=== PATIENT | female | born 1980 | race African-American/Black ===

== ENCOUNTER 2016-06-26 22:56 | Emergency (ER) | payer MEDICAID, OTHER ==
[~2016-06-26] VITALS: Ht 170.2 cm; Wt 108.4 kg
[~2016-06-26 22:56] MED LIST: AMLO10TA2 PO; DARU800T2 OR; EMTRTAB7 PO; NEBI20TA2 PO; RITO100T PO; TRAZ50TA2 PO; [UNRECOGNIZED DRUG - CODE] PO
[2016-06-27 02:53] LABS: Basophils # (auto) 0 uL; Basophils % (auto) 0.3 % (0.0-2.0); DEFINITIVE VIEW TRANSMISSION; Eosinophils # (auto) 0 uL; Eosinophils % (auto) 1.2 % (0.0-7.0); Hematocrit 37.8 % (36.0-46.0); Lymphocytes # (auto) 1.4 uL; Lymphocytes % (auto) 38.5 % (10.0-50.0); Mean Corpuscular Hemoglobin 25.9 pg (28.0-32.0); Mean Corpuscular Hgb Conc. 31.7 g/dL (32.0-36.0); Mean Corpuscular Volume 81.8 fL (80.0-100.0); Mean Platelet Volume 7.5 fL (7.4-10.4); Monocytes # (auto) 0.2 uL; Neutrophils # (auto) 2.1 uL; Platelet Count (auto) 334 10^3/uL (140-450); White Blood Cell 3.7 10^3/uL (4.4-10.8)
[2016-06-27 03:11] LABS: INR 1.04 (0.9-1.15); Partial Thromboplastin Time 24.8 sec (22.64-33.71); Prothrombin Time 10.7 sec (9.37-12.3)
[2016-06-27 03:42] LABS: Albumin 3.2 g/dL (3.4-5.0); BUN/Creatinine Ratio 17.6; Calcium 7.8 mg/dL (8.5-10.1)
[2016-06-27 03:46] LABS: Bilirubin, Total 0.2 mg/dL (0.2-1.0); Total Protein 9.2 g/dL (6.4-8.2)
[2016-06-27] MEDS ORDERED: LIDOCAINE VISCOUS 2% 15ML UD PO ONE (04:00)
[2016-06-27] MEDS ORDERED: ONDANSETRON ODT 4 MG TAB PO ONE (04:00)
[2016-06-27] MEDS ORDERED: DONNATAL 5ml ORAL Elix (BELLADONNA ALK-PHENOBARB) PO ONE (04:00)
[2016-06-27] MEDS ORDERED: ALUM & MAG HYDROX-SIMETH LIQ(MAALOX) 30 ML PO ONE (04:00)
[2016-06-27 04:17] LABS: Urine Bilirubin Negative (Negative); Urine Color Yellow (Yellow); Urine Glucose Normal (Normal); Urine Ketone Negative (Negative); Urine Mucus FEW (None Seen); Urine Nitrite Negative (Negative); Urine RBC 37 /hpf (0 - 4); Urine Squamous Epithelial Cell FEW /hpf (<5); Urine Urobilinogen Normal (Negative)
[2016-06-27 04:22] LABS: Potassium 2.9 mmol/L (3.5-5.1)
[2016-06-27] MEDS ORDERED: POTASSIUM CHL 20 Meq TABLET PO ONE (04:30)
[2016-06-27 04:31] LABS: Urine Blood 3+ /uL (Negative)
[2016-06-27] MEDS ORDERED: cefTRIAXone W LIDOCAINE 500 MG IM IM ONE (04:45)
[2016-06-27] MEDS ORDERED: cefTRIAXone SOD 500 MG VL ONE (05:06)
[2016-06-27] MEDS ORDERED: LIDOCAINE 1% HCL (LOCAL ANESTH.) INJ 20ML MDV ONE (05:06)
[2016-06-27 05:19] VITALS: BP 115/78
== END 2016-06-27 06:14 | disposition home or self-care (01) ==
LOC: ER 23:05
DX: K52.9 Noninfective gastroenteritis and colitis, unspecified (principal); N39.0 Urinary tract infection, site not specified; E11.9 Type 2 diabetes mellitus without complications; I10 Essential (primary) hypertension; J45.909 Unspecified asthma, uncomplicated; Z79.899 Other long term (current) drug therapy; F17.210 Nicotine dependence, cigarettes, uncomplicated; F12.10 Cannabis abuse, uncomplicated; F14.10 Cocaine abuse, uncomplicated
CPT/HCPCS: 36415; 80053; 81001; 83690; 84702; 85025; 85610; 85730; 96372; 99284; J0696; J2001; Q0162

== ENCOUNTER 2017-06-12 11:59 | Emergency (ER) | payer MEDICAID ==
[~2017-06-12] VITALS: Ht 167.6 cm; Wt 99.8 kg
[2017-06-12 15:03] VITALS: BP 144/93
[2017-06-12] MEDS ORDERED: SODIUM CHLORIDE 0.9% 2,000 ML IV ONE (17:06)
[2017-06-12] MEDS ORDERED: ONDANSETRON HCL 4 MG/2 ML VIAL IV ONE (17:15)
[2017-06-12] MEDS ORDERED: cefTRIAXone 1GM/10ml IVPUSH 10 ML IV ONE (17:15)
[2017-06-12] MEDS ORDERED: HYDROmorphone HCL 2 MG/ML VL IM ONE (17:15)
[2017-06-12] MEDS ORDERED: FLUCONAZOLE 200MG/100ML 100 ML IV ONE (18:00)
[2017-06-12] MEDS ORDERED: CLOTRIMAZOLE 1 % CREAM 15GM TOP ONE (18:00)
[2017-06-12 18:30] LABS: Basophils # (auto) 0 uL; Basophils % (auto) 0.3 % (0.0-2.0); Eosinophils # (auto) 0 uL; Eosinophils % (auto) 0.8 % (0.0-7.0); Hematocrit 38.4 % (36.0-46.0); Hemoglobin 12.6 g/dL (12.2-16.2); Lymphocytes # (auto) 0.6 uL; Lymphocytes % (auto) 13.9 % (10.0-50.0); Mean Corpuscular Hemoglobin 28.7 pg (28.0-32.0); Mean Corpuscular Hgb Conc. 32.7 g/dL (32.0-36.0); Mean Corpuscular Volume 87.6 fL (80.0-100.0); Monocytes # (auto) 0.2 uL; Monocytes % (auto) 4.2 % (0.0-12.0); Neutrophils # (auto) 3.6 uL; Neutrophils % (auto) 80.8 % (37.0-80.0); Platelet Count (auto) 264 10^3/uL (140-450); Red Blood Cells 4.38 10^6/uL (4.0-5.20); White Blood Cell 4.5 10^3/uL (4.4-10.8)
[2017-06-12 18:41] LABS: INR 0.9 (0.9-1.15); Partial Thromboplastin Time 26.8 sec (22.64-33.71); Prothrombin Time 9.8 sec (9.37-12.3)
[2017-06-12 18:48] LABS: Albumin 2.8 g/dL (3.4-5.0); BUN/Creatinine Ratio 19.7; Calcium 8.1 mg/dL (8.5-10.1); Potassium 3.4 mmol/L (3.5-5.1)
[2017-06-12 18:50] LABS: Bilirubin, Total 0.1 mg/dL (0.2-1.0); Total Protein 7.1 g/dL (6.4-8.2)
== END 2017-06-12 19:07 | disposition home or self-care (01) ==
LOC: ER 11:59
DX: B37.3 Candidiasis of vulva and vagina (principal); B37.0 Candidal stomatitis; B96.89 Other specified bacterial agents as the cause of diseases classified elsewhere; J45.909 Unspecified asthma, uncomplicated; I10 Essential (primary) hypertension; E11.9 Type 2 diabetes mellitus without complications; Z86.61 Personal history of infections of the central nervous system; F17.210 Nicotine dependence, cigarettes, uncomplicated
CPT/HCPCS: 36415; 71046; 80053; 85025; 85610; 85730; 96365; 96372; 96375; 99285; J1170; J1450; J2405; J7030

== ENCOUNTER 2017-07-29 04:29 | Emergency (ER) | payer MEDICAID ==
[~2017-07-29] VITALS: Ht 170.2 cm; Wt 99.8 kg
[2017-07-29 04:47] VITALS: BP 151/100
[2017-07-29] MEDS ORDERED: cefTRIAXone SOD 1,000 MG VL IM ONE (07:00)
[2017-07-29] MEDS ORDERED: ONDANSETRON HCL 4 MG/2 ML VIAL IM ONE (07:00)
[2017-07-29] MEDS ORDERED: MORPHINE SULFATE 10 MG/ML INJ 1ML SDV IM ONE (07:00)
[2017-07-29] MEDS ORDERED: MORPHINE SULFATE 4 MG/ML SYR/VIAL IM ONE (07:15)
[2017-07-29 08:19] LABS: Basophils # (auto) 0.2 uL; Basophils % (auto) 2.5 % (0.0-2.0); Eosinophils # (auto) 0 uL; Eosinophils % (auto) 0.2 % (0.0-7.0); Hemoglobin 14.1 g/dL (12.2-16.2); Lymphocytes # (auto) 0.7 uL; Lymphocytes % (auto) 10.4 % (10.0-50.0); Mean Corpuscular Hgb Conc. 33.5 g/dL (32.0-36.0); Mean Corpuscular Volume 86.4 fL (80.0-100.0); Monocytes # (auto) 0.2 uL; Monocytes % (auto) 3.1 % (0.0-12.0); Neutrophils # (auto) 5.4 uL; Neutrophils % (auto) 83.8 % (37.0-80.0); Nucleated Red Blood Cells % 0.1 %; Platelet Count (auto) 310 10^3/uL (140-450); Red Blood Cells 4.85 10^6/uL (4.0-5.20); Red Cell Distribution Width 14.6 % (11.8-14.3); White Blood Cell 6.5 10^3/uL (4.4-10.8)
[2017-07-29 08:43] LABS: Albumin 3.7 g/dL (3.4-5.0); BUN/Creatinine Ratio 9.6; Calcium 8.6 mg/dL (8.5-10.1)
[2017-07-29 08:44] LABS: Bilirubin, Total 0.4 mg/dL (0.2-1.0); Total Protein 8.8 g/dL (6.4-8.2)
== END 2017-07-29 08:30 | disposition home or self-care (01) ==
LOC: ER 04:31
DX: L02.512 Cutaneous abscess of left hand (principal); J45.909 Unspecified asthma, uncomplicated; I10 Essential (primary) hypertension; B20 Human immunodeficiency virus [HIV] disease; E11.9 Type 2 diabetes mellitus without complications; F17.210 Nicotine dependence, cigarettes, uncomplicated; Z48.817 Encounter for surgical aftercare following surgery on the skin and subcutaneous tissue
CPT/HCPCS: 36415; 73130; 73200; 80053; 81025; 83605; 85025; 86360; 96372; 99285; J0696; J2270; J2405

== ENCOUNTER 2017-10-08 19:49 | Emergency (ER) | payer MEDICAID ==
[~2017-10-08] VITALS: Ht 170.2 cm; Wt 87.3 kg
[2017-10-08 20:10] VITALS: BP 152/92
== END 2017-10-08 21:30 | disposition home or self-care (01) ==
LOC: ER 19:49
DX: B37.9 Candidiasis, unspecified (principal); B20 Human immunodeficiency virus [HIV] disease; J45.909 Unspecified asthma, uncomplicated; E11.9 Type 2 diabetes mellitus without complications; I10 Essential (primary) hypertension; F17.210 Nicotine dependence, cigarettes, uncomplicated; F12.10 Cannabis abuse, uncomplicated; F14.10 Cocaine abuse, uncomplicated

== ENCOUNTER 2018-01-11 00:38 | Inpatient (IN) | payer MEDICAID ==
[~2018-01-11] VITALS: Ht 170.2 cm; Wt 90.3 kg
[2018-01-11 03:22] LABS: Basophils # (auto) 0 uL; Basophils % (auto) 0.3 % (0.0-2.0); Eosinophils # (auto) 0 uL; Eosinophils % (auto) 0.7 % (0.0-7.0); Hematocrit 32.9 % (36.0-46.0); Hemoglobin 10.8 g/dL (12.2-16.2); Lymphocytes # (auto) 0.6 uL; Lymphocytes % (auto) 15.3 % (10.0-50.0); Mean Corpuscular Hemoglobin 27.5 pg (28.0-32.0); Mean Corpuscular Hgb Conc. 32.9 g/dL (32.0-36.0); Mean Corpuscular Volume 83.7 fL (80.0-100.0); Monocytes # (auto) 0.2 uL; Monocytes % (auto) 5.7 % (0.0-12.0); Neutrophils # (auto) 2.8 uL; Platelet Count (auto) 287 10^3/uL (140-450); Red Blood Cells 3.93 10^6/uL (4.0-5.20); Red Cell Distribution Width 16.4 % (11.8-14.3); White Blood Cell 3.6 10^3/uL (4.4-10.8)
[2018-01-11 03:35] LABS: Albumin 2.9 g/dL (3.4-5.0); BUN/Creatinine Ratio 13.8; Calcium 8.2 mg/dL (8.5-10.1); Potassium 3.2 mmol/L (3.5-5.1)
[2018-01-11 03:38] LABS: Bilirubin, Total 0.2 mg/dL (0.2-1.0); Total Protein 8.3 g/dL (6.4-8.2)
[2018-01-11] MEDS: VANCOMYCIN 1GM/250ML 250 ML IV ONE ×2 (04:00→05:30)
[2018-01-11] MEDS ORDERED: PIPERACILLIN-TAZOB 3.375GM 100 ML IV ONE (04:00)
[2018-01-11] MEDS ORDERED: HYDROcodone-ACET 5/325MG TAB PO PRN (05:15)
[2018-01-11] MEDS ORDERED: TEMAZEPAM 15 MG CAP PO PRN (05:15)
[2018-01-11] MEDS ORDERED: ONDANSETRON HCL 4 MG/2 ML VIAL IV PRN (05:15)
[2018-01-11] MEDS ORDERED: ACETAMINOPHEN 325 MG TAB PO PRN (05:15)
[2018-01-11] MEDS: CLINDAMYCIN 600MG IV 50 ML IV SCH ×2 (06:00→14:28)
[2018-01-11] MEDS ORDERED: POTASSIUM CHL 20 Meq TABLET PO ONE (06:30)
[2018-01-11] MEDS ORDERED: cefTRIAXone 1GM/10ml IVPUSH 10 ML IV SCH (09:00)
[2018-01-11] MEDS ORDERED: IOHEXOL 300 MG/ML 100ML BOTTLE IJ ONE (09:24)
[2018-01-11] MEDS ORDERED: amLODIPine BESYLATE 5 MG TAB PO SCH (10:00)
[2018-01-11] MEDS ORDERED: BYSTOLIC 20 MG PO SCH (10:00)
[2018-01-11] MEDS ORDERED: NORVIR 100 MG PO SCH (10:00)
[2018-01-11] MEDS ORDERED: FAMOTIDINE 20 MG TAB PO SCH (10:00)
[2018-01-11 15:06] LABS: Urine Bacteria FEW /hpf (None Seen); Urine Blood Negative /uL (Negative); Urine Budding Yeast OCCASIONAL /hpf (None Seen); Urine Specific Gravity 1.028 (1.001-1.035); Urine WBC 3 /hpf (0 - 5)
[2018-01-11] MEDS ORDERED: TETANUS-DIPTH-ACEL PERTUSSIS 0.5ML SYRG IM ONE (15:15)
[2018-01-11 16:17] VITALS: BP 115/83
[2018-01-11 18:58] LABS: Alcohol, Urine < 3.0 mg/dL (0-5); Amphetamine Screen, Urine NEGATIVE (NEGATIVE); Barbiturate Scree,Urine NEGATIVE (NEGATIVE); Benzodiazephine Screen, Urine NEGATIVE (NEGATIVE); Cannabinoid Screen, Urine NEGATIVE (NEGATIVE); Cocaine Screen, Urine POSITIVE (NEGATIVE); Opiate Scree,Urine NEGATIVE (NEGATIVE); Phencyclidine Screen, Urine NEGATIVE (NEGATIVE)
== END 2018-01-11 16:30 | disposition short-term general hospital (02) | DRG 894 ==
LOC: ER 00:38 → OVERFLOW 00:39
PROVIDERS: ADMIT Nurse Practitioner; ATTEND Nurse Practitioner
DX: L02.413 Cutaneous abscess of right upper limb (principal); B20 Human immunodeficiency virus [HIV] disease; M00.821 Arthritis due to other bacteria, right elbow; I10 Essential (primary) hypertension; E11.9 Type 2 diabetes mellitus without complications; F17.210 Nicotine dependence, cigarettes, uncomplicated; F14.90 Cocaine use, unspecified, uncomplicated; F12.90 Cannabis use, unspecified, uncomplicated; Z72.89 Other problems related to lifestyle; J45.909 Unspecified asthma, uncomplicated; Z98.51 Tubal ligation status; Z86.14 Personal history of Methicillin resistant Staphylococcus aureus infection
CPT/HCPCS: 36415; 71045; 73201; 80053; 80307; 81001; 84702; 85025; 87040; 87077; 87186; 87205; 90471; 90715; 94761; 96365; 96366; 96368; 96375; J0696; J2543; J3490

== ENCOUNTER 2018-07-10 09:39 | Emergency (ER) | payer MEDICAID ==
[~2018-07-10] VITALS: Ht 167.6 cm; Wt 65.3 kg
[~2018-07-10 09:39] MED LIST changes: +AMLO10TA12 PO; -AMLO10TA2 PO
[2018-07-10 10:37] LABS: Basophils # (auto) 0 uL; Basophils % (auto) 0.5 % (0.0-2.0); Eosinophils # (auto) 0 uL; Eosinophils % (auto) 0.1 % (0.0-7.0); Hematocrit 36.7 % (36.0-46.0); Hemoglobin 12.2 g/dL (12.2-16.2); Lymphocytes # (auto) 0.3 uL; Lymphocytes % (auto) 5.5 % (10.0-50.0); Mean Corpuscular Hemoglobin 28.5 pg (28.0-32.0); Mean Corpuscular Hgb Conc. 33.2 g/dL (32.0-36.0); Mean Corpuscular Volume 85.9 fL (80.0-100.0); Monocytes # (auto) 0.2 uL; Monocytes % (auto) 3.4 % (0.0-12.0); Neutrophils # (auto) 5.5 uL; Neutrophils % (auto) 90.5 % (37.0-80.0); Platelet Count (auto) 390 10^3/uL (140-450); Red Blood Cells 4.27 10^6/uL (4.0-5.20); Red Cell Distribution Width 17.4 % (11.8-14.3); White Blood Cell 6.1 10^3/uL (4.4-10.8)
[2018-07-10] MEDS ORDERED: ACETAMINOPHEN 325 MG TAB PO ONE (10:45)
[2018-07-10 10:52] LABS: Albumin 2.6 g/dL (3.4-5.0); BUN/Creatinine Ratio 11.8; Calcium 8.3 mg/dL (8.5-10.1); Potassium 3.2 mmol/L (3.5-5.1)
[2018-07-10 10:55] LABS: Bilirubin, Total 0.3 mg/dL (0.2-1.0); Total Protein 8.4 g/dL (6.4-8.2)
[2018-07-10 14:50] LABS: Urine Pregnacy Test Negative (Negative)
[2018-07-10] MEDS ORDERED: PIPERACILLIN-TAZOB 3.375GM 100 ML IV ONE (15:00)
[2018-07-10 15:20] LABS: Amphetamine Screen, Urine NEGATIVE (NEGATIVE); Barbiturate Scree,Urine NEGATIVE (NEGATIVE); Benzodiazephine Screen, Urine NEGATIVE (NEGATIVE); Cannabinoid Screen, Urine POSITIVE (NEGATIVE); Cocaine Screen, Urine POSITIVE (NEGATIVE); Opiate Scree,Urine NEGATIVE (NEGATIVE); Phencyclidine Screen, Urine NEGATIVE (NEGATIVE)
[2018-07-10] MEDS ORDERED: IBUPROFEN 600 MG TAB PO ONE ×2 (15:22→15:30)
[2018-07-10] MEDS ORDERED: SODIUM CHLORIDE 0.9% 1,000 ML IV ONE (15:30)
[2018-07-10 15:50] LABS: Urine Bacteria NONE SEEN /hpf (None Seen); Urine Blood Negative /uL (Negative); Urine Hyaline Cast FEW /lpf (0 - 2); Urine Mucus FEW (None Seen); Urine Specific Gravity 1.028 (1.001-1.035); Urine WBC 16 /hpf (0 - 5)
[2018-07-11 01:47] VITALS: BP 123/84
== END 2018-07-11 02:18 | disposition short-term general hospital (02) ==
LOC: ER 09:39
DX: L03.012 Cellulitis of left finger (principal); L89.90 Pressure ulcer of unspecified site, unspecified stage; J45.909 Unspecified asthma, uncomplicated; I10 Essential (primary) hypertension; F17.210 Nicotine dependence, cigarettes, uncomplicated; F12.90 Cannabis use, unspecified, uncomplicated; Z98.51 Tubal ligation status; Z79.899 Other long term (current) drug therapy
CPT/HCPCS: 36415; 71046; 73200; 74176; 80053; 80307; 81001; 81025; 85025; 87040; 96365; 96366; 99285; J2543; J7030

== ENCOUNTER 2019-02-17 18:10 | Inpatient (IN) | payer MEDICAID ==
[~2019-02-17] VITALS: Ht 167.6 cm; Wt 64.7 kg
[~2019-02-17 18:10] MED LIST changes: -AMLO10TA12 PO; +AMLO10TA13 PO; -DARU800T2 OR; +DARU800T3 OR
[2019-02-17 19:11] LABS: Basophils # (auto) 0 uL; Eosinophils # (auto) 0 uL; Monocytes # (auto) 0.1 uL; White Blood Cell 2.2 10^3/uL (4.4-10.8)
[2019-02-17 19:14] LABS: Hematocrit 33.4 % (36.0-46.0); Hemoglobin 11.3 g/dL (12.2-16.2); Lymphocytes # (auto) 0.2 uL; Lymphocytes % (auto) 7.6 % (10.0-50.0); Mean Corpuscular Hemoglobin 25.1 pg (28.0-32.0); Mean Corpuscular Hgb Conc. 33.9 g/dL (32.0-36.0); Mean Corpuscular Volume 73.9 fL (80.0-100.0); Monocytes % (auto) 5.9 % (0.0-12.0); Neutrophils # (auto) 1.9 uL; Neutrophils % (auto) 86.5 % (37.0-80.0); Nucleated Red Blood Cells % 0.2 %; Platelet Count (auto) 207 10^3/uL (140-450); Red Blood Cells 4.52 10^6/uL (4.0-5.20)
[2019-02-17 19:15] LABS: Red Cell Distribution Width 21.5 % (11.8-14.3)
[2019-02-17 19:17] LABS: Albumin 2.6 g/dL (3.4-5.0); BUN/Creatinine Ratio 14.5; Calcium 8.1 mg/dL (8.5-10.1)
[2019-02-17 19:20] LABS: Lactic Acid w/Reflex 2.3 mmol/L (0.4-2.0)
[2019-02-17 19:24] LABS: Bilirubin, Total 0.5 mg/dL (0.2-1.0); Total Protein 8.1 g/dL (6.4-8.2)
[2019-02-17 19:28] LABS: Potassium 2.4 mmol/L (3.5-5.1)
[2019-02-17] MEDS ORDERED: ONDANSETRON HCL 4 MG/2 ML VIAL IV ONE (21:30)
[2019-02-17] MEDS ORDERED: SODIUM CHLORIDE 0.9% 1,650 ML IV ONE (21:30)
[2019-02-17] MEDS: POTASSIUM CHL 20MEQ/100ML 100 ML IV SCH ×2 (21:52→23:47)
[2019-02-17 22:38] LABS: Amylase 129 U/L (25-115); Lipase 317 U/L (73-393)
[2019-02-17 22:41] LABS: Salicylate < 1.7 mg/dL (2.8-20.0)
[2019-02-17 22:42] LABS: Blood Alcohol < 3.0 mg/dL (0-5)
[2019-02-17 22:43] LABS: Acetaminophen < 2.0 ug/mL (10-30)
[2019-02-18] MEDS ORDERED: MORPHINE SULFATE 4 MG/ML SYR/VIAL IV ONE (00:30)
[2019-02-18] MEDS ORDERED: PIPERACILLIN-TAZOB 3.375GM 100 ML IV ONE (00:30)
[2019-02-18] MEDS ORDERED: VANCOMYCIN 1GM/250ML 250 ML IV ONE ×2 (01:30→03:30)
[2019-02-18] MEDS ORDERED: ACETAMINOPHEN 325 MG TAB PO PRN (03:00)
[2019-02-18] MEDS ORDERED: TEMAZEPAM 15 MG CAP PO PRN (03:00)
[2019-02-18] MEDS ORDERED: SODIUM CHLORIDE 0.9% 500 ML IV ONE ×2 (03:00→22:45)
[2019-02-18] MEDS ORDERED: VANCOMYCIN PER PHARMACY 0 MG IV SCH (03:00)
[2019-02-18] MEDS ORDERED: MORPHINE SULF INJ 2 MG/ML SYRINGE 1ML IV PRN (03:15)
[2019-02-18] MEDS ORDERED: NITROGLYCERIN 0.4 MG SL TAB SL PRN (03:15)
--- NOTE | 2019-02-18 04:30 | NUR ---
Pt lieing in bed on L side in semi- position. EMERGENCY ROOM NURSE getting VS. Pt denies pain at this time but states she is hungry. Has clear liquid diet ordered. Pt's eyes closed when RN re-entered room to speak with her about her diet.
--- NOTE | 2019-02-18 04:35 | NUR ---
Telemetry admit from ER NITESH CASH admitted to Telemetry unit. Patient oriented to NILSA JONES OCA, primary RN, unit, room, bed, and unit policies regarding patient care and visiting hours. Patient now on continuous telemetry monitoring, tele box #3 and telemetry reading on arrival to unit is sinus rhythm. Patient weighed by bedscale and encouraged to call if they need something. All questions and concerns addressed, patient verbalized understanding.
[2019-02-18 05:06] LABS: Urine Bacteria FEW /hpf (None Seen); Urine Blood TRACE /uL (Negative); Urine Hyaline Cast FEW /lpf (0 - 2); Urine Specific Gravity 1.011 (1.001-1.035); Urine WBC 2 /hpf (0 - 5)
[2019-02-18 05:09] LABS: Alcohol, Urine < 3.0 mg/dL (0-5); Amphetamine Screen, Urine NEGATIVE (NEGATIVE); Barbiturate Scree,Urine NEGATIVE (NEGATIVE); Benzodiazephine Screen, Urine NEGATIVE (NEGATIVE); Cannabinoid Screen, Urine NEGATIVE (NEGATIVE); Cocaine Screen, Urine POSITIVE (NEGATIVE); Opiate Scree,Urine NEGATIVE (NEGATIVE); Phencyclidine Screen, Urine NEGATIVE (NEGATIVE)
[2019-02-18 05:49] VITALS: BP 87/55
[2019-02-18] MEDS: SODIUM CHLORIDE 0.9% 1,000 ML IV SCH ×2 (06:16→14:46)
[2019-02-18] MEDS: NYSTATIN (MOUTH-THROAT) 500,000 UNITS/5 ML SUSP MT SCH ×4 (06:17→21:39)
[2019-02-18] MEDS: PIPERACILLIN-TAZOB 3.375GM 100 ML IV SCH ×3 (06:17→18:51)
[2019-02-18] MEDS ORDERED: BICT1TAB PO (06:52)
--- NOTE | 2019-02-18 07:30 | NUR ---
Opening Note Received report from shift manager RN. Patient is resting in bed, easy to wake by calling name. No signs or symptoms of distress noted at this time. Patient is on room air, respirations even and unlabored. Patient denies pain at this time. Patient has Ulloa catheter in place, patent and draining yellow urine. Reviewed plan of care with patient, patient verbalized understanding. Bed in low and locked position, call light within reach. Will continue to monitor Q1 hour and PRN.
[2019-02-18 08:19] LABS: Albumin 2.1 g/dL (3.4-5.0); Calcium 7.2 mg/dL (8.5-10.1); Potassium 3.2 mmol/L (3.5-5.1)
[2019-02-18 08:44] LABS: BUN/Creatinine Ratio 13.7; Bilirubin, Total 0.4 mg/dL (0.2-1.0); Total Protein 6.7 g/dL (6.4-8.2)
[2019-02-18 09:00] VITALS: BP 104/72
[2019-02-18] MEDS ORDERED: SULFAMETHOX W/TRIMETH(800/160MG) DS TAB PO ONE (10:15)
[2019-02-18] MEDS ORDERED: POTASSIUM CHLORIDE 40 MEQ, LIDOCAINE 1% (LOCAL ANESTH.) 4 ML in SODIUM CHL 0.9% 100 ML IV ONE (10:15)
[2019-02-18] MEDS ORDERED: POTASSIUM EFFERVESENT TAB 25 MEQ PO ONE (10:15)
--- NOTE | 2019-02-18 11:46 | NUR ---
Dr. Camilo at bedside Updating patient on plan of care. Will continue to monitor Q1 hour and PRN.
[2019-02-18 13:00] VITALS: BP 88/53
--- NOTE | 2019-02-18 13:37 | NUR ---
Midline Placement: Patient educated on need for midline placement. All risks and benefits explained and all questions and concerns addresses prior to procedure. 18g/10cm midline inserted via right brachial vein using Ultrasound x 1. Sterile technique utilized. Blood return obtained from single lumen (positional) and flushed easily with NS using proper technique. Midline secured with saline lock; biodisc and occlusive dressing applied. Primary RN notified. Midline lot #[id number].
[2019-02-18 17:00] VITALS: BP 86/56
--- NOTE | 2019-02-18 17:09 | NUR ---
Temperature patient has oral temperature of 101F. Will medicate with PRN Tylenol. Will continue to monitor Q1 hour and PRN.
--- NOTE | 2019-02-18 17:43 | NUR ---
Temperature reassessed Temperature reassessed currently is 98.4F. Will continue to monitor Q1 hour and PRN.
--- NOTE | 2019-02-18 19:10 | NUR ---
Closing Note Report given to shift boss RN. No signs or symptoms of distress noted at this time.
--- NOTE | 2019-02-18 19:20 | NUR ---
Opening Shift Note Assumed care of patient, awake and alert. No S/S of distress/SOB or pain. Instructed on POC and to call for assist PRN. Bed in lowest locked position, call light within reach, side rails up x2. Will continue to monitor for changes Q1hr and PRN.
[2019-02-18 21:36] VITALS: BP 77/42
[2019-02-18] MEDS: SULFAMETHOX W/TRIMETH(800/160MG) DS TAB PO SCH (21:39)
[2019-02-18] MEDS: VANCOMYCIN 1,250 MG in D5W 5% 250 ML IV SCH (21:39)
--- NOTE | 2019-02-18 22:00 | NUR ---
Hospitalist paged NELLY Brock called regarding patient's low blood pressure. Waiting for call back. Continue care.
--- NOTE | 2019-02-18 22:47 | NUR ---
Hospitalist returned call LOAD OUT SUPERVISOR Vinod returned call, updated on patient status and reason for call, new orders received and read back for verification. Continue care.
[2019-02-18] MEDS ORDERED: VANCOMYCIN 1,250 MG in D5W 5% 250 ML IV SCH (23:00)
[2019-02-19] MEDS: PIPERACILLIN-TAZOB 3.375GM 100 ML IV SCH ×4 (00:50→18:11)
[2019-02-19] MEDS: SODIUM CHLORIDE 0.9% 1,000 ML IV SCH ×3 (00:50→19:00)
--- NOTE | 2019-02-19 01:00 | NUR ---
BP Recheck BP 109/77 HR 91
[2019-02-19 05:26] VITALS: BP 95/57
[2019-02-19] MEDS: NYSTATIN (MOUTH-THROAT) 500,000 UNITS/5 ML SUSP MT SCH ×5 (05:41→22:15)
[2019-02-19 05:56] LABS: Platelet Count (auto) 135 10^3/uL (140-450)
[2019-02-19 05:57] LABS: Hematocrit 25.3 % (36.0-46.0); Hemoglobin 8.5 g/dL (12.2-16.2); Mean Corpuscular Hemoglobin 25.2 pg (28.0-32.0); Mean Corpuscular Hgb Conc. 33.6 g/dL (32.0-36.0); Mean Corpuscular Volume 75.1 fL (80.0-100.0); Red Blood Cells 3.37 10^6/uL (4.0-5.20)
[2019-02-19 06:15] LABS: Basophils % (manual) 0 (0.0-2.0); Blast Cells 0; Eosinophils % (manual) 0 (0-7); Metamyelocytes % 0; Myelocytes % 0; Promyelocytes % 0; Reactive Lymphocytes 0; Red Cell Distribution Width 22.1 % (11.8-14.3); White Blood Cell 1.8 10^3/uL (4.4-10.8)
[2019-02-19 06:17] LABS: Albumin 1.6 g/dL (3.4-5.0); Calcium 6.9 mg/dL (8.5-10.1); Potassium 3.6 mmol/L (3.5-5.1)
--- NOTE | 2019-02-19 06:20 | NUR ---
Critical lab WBC 1.8. Will page hospitalist.
--- NOTE | 2019-02-19 06:21 | NUR ---
Hospitalist paged NELLY Brock called regarding critical lab. Waiting for call back. Continue care.
[2019-02-19 06:22] LABS: BUN/Creatinine Ratio 11.9; Bilirubin, Total 0.3 mg/dL (0.2-1.0); Total Protein 5.4 g/dL (6.4-8.2)
--- NOTE | 2019-02-19 06:24 | NUR ---
returned call NELLY Brock returned call, updated on patient status and reason for call, no new orders received at this time. Continue care.
--- NOTE | 2019-02-19 07:15 | NUR ---
Opening Note Received report from sorting and folding supervisor RN. Patient is awake, alert and oriented x4. No signs or symptoms of distress noted at this time. Patient is on room air, respirations even and unlabored. Patient denies pain at this time. Patient has Ulloa catheter in place, patent and draining yellow urine. Reviewed plan of care with patient, patient verbalized understanding. Bed in low and locked position, call light within reach. Will continue to monitor Q1 hour and PRN.
[2019-02-19 07:44] LABS: Band Neutrophils % (manual) 5; Lymphocytes % (manual) 10 (10.0-50.0); Monocytes % (manual) 3 (0-12)
[2019-02-19 09:00] VITALS: BP 100/60
[2019-02-19] MEDS: SULFAMETHOX W/TRIMETH(800/160MG) DS TAB PO SCH ×2 (09:25→22:15)
[2019-02-19] MEDS ORDERED: MAGNESIUM OXIDE 400 MG TAB PO ONE (10:00)
[2019-02-19] MEDS: MAGNESIUM SULFATE 1GM/100ML 100 ML IV SCH ×3 (10:16→14:12)
--- NOTE | 2019-02-19 10:45 | NUR ---
Dr. Camilo at bedside Updating patient on plan of care. Will continue to monitor Q1 hour and PRN.
--- NOTE | 2019-02-19 10:50 | NUR ---
lubrication technician at bedside
[2019-02-19] MEDS: DULoxetine HCL 30 MG CAP PO SCH (11:32)
[2019-02-19] MEDS: FLUCONAZOLE 200MG/100ML 100 ML IV SCH ×2 (11:32→14:12)
--- NOTE | 2019-02-19 11:40 | NUR ---
Patient taken down for CT
[2019-02-19] MEDS ORDERED: AZITHROMYCIN 200 MG/5 ML ORAL SUSP PO ONE (12:45)
[2019-02-19 13:00] VITALS: BP 101/72
--- NOTE | 2019-02-19 13:00 | NUR ---
Tele-psych completed Received call from Dr. Weaver, states report will be faxed over. Recommends for patient to follow up outpatient and resume Celexa 20mg daily. Will notify
--- NOTE | 2019-02-19 13:14 | NUR ---
assessment re: VÍCTOR dugan and dc planning and social support Patient is a 38 year old female who is alert and oriented. Patients cognitive abilities are intact. Prior to admission patient lived home with family and functioned independently. Patient informed me she is able to care for her own ADLs. Per patient she will return home to her prior living arrangements post discharge and family will transport her home. Patient informed me she has good family support. Patient informed me she is dealing with her diagnosis of HIV just fine, she stated she has been diagnosed 11 years ago. Patient informed me she does not need anything and is fine at home. I asked patient if I could get her a home health nurse to help her with her medications and patient refused. I informed patient she has a right to speak to a social worker school regarding all care. I informed patient she has a right to participate in any and all discharge planning. Patient does not have a POA and advanced directive. I have offered patient information on POA and advanced directives. I informed the patient the advantages and benefits of having an Advanced Directive. Patient verbalized understanding and agreed to discharge plan. Addendum: 02/19/19 at 1324 by Maria Del Rosario MCCARTY Amended: Links added.
--- NOTE | 2019-02-19 13:57 | NUR ---
Spoke with Josi from radiology Patient to have biopsy tomorrow and to be NPO after midnight. Will continue to monitor Q1 hour and PRN.
--- NOTE | 2019-02-19 16:38 | NUR ---
Dr. Hussein at bedside Updating patient on plan of crew. Patient to have EGD tomorrow. Will continue to monitor Q1 hour and PRN.
[2019-02-19] MEDS ORDERED: LACTULOSE 20Gm/30ML SOLN PO PRN (16:45)
[2019-02-19 17:00] VITALS: BP 101/66
--- NOTE | 2019-02-19 17:00 | NUR ---
Tele psych report placed in patient chart
[2019-02-19] MEDS: ONDANSETRON HCL 4 MG/2 ML VIAL IV PRN (18:24)
--- NOTE | 2019-02-19 18:27 | NUR ---
1800 PO MEDICATION HELD PATIENT VOMITING WILL MEDICATE WITH PRN YI WILL CONTINUE TO MONITOR. Signed: 02/19/19 at 1828 by GRAHAM PALACIOS <Co-Signature Required> Co-Signed: 02/19/19 at 1828 by NIDIA MCRAE RN RN
--- NOTE | 2019-02-19 19:20 | NUR ---
Opening Shift Note Assumed care of patient, awake and alert, laying in position. Patient denies distress/SOB or pain, however states continued nausea, although with some relief since PRN medication administration. Instructed on POC and to call for assist PRN. Bed in lowest locked position, call light within reach, side rails up x2. Will continue to monitor for changes Q1hr and PRN.
--- NOTE | 2019-02-19 19:34 | NUR ---
Closing Note Report given to cook night RN. No signs or symptoms of distress noted at this time.
[2019-02-19 22:00] VITALS: BP 116/75
--- NOTE | 2019-02-19 22:05 | NUR ---
PATIENT C/O NAUSEA WITH PO MED ADMINISTRATION. WILL ADMINISTER N/V PRN PER ORDER.
[2019-02-19] MEDS: VANCOMYCIN 1,250 MG in D5W 5% 250 ML IV SCH (22:15)
[2019-02-19] MEDS: traZODone HCL 50 MG TAB PO SCH (22:15)
[2019-02-19 22:57] LABS: INR 1.03 (0.9-1.15)
[2019-02-20] MEDS: PIPERACILLIN-TAZOB 3.375GM 100 ML IV SCH ×5 (00:15→23:46)
[2019-02-20] MEDS: ONDANSETRON HCL 4 MG/2 ML VIAL IV PRN ×2 (00:15→15:57)
--- NOTE | 2019-02-20 00:44 | NUR ---
ROUNDS PATIENT RESTING IN BED WITH EVEN AND UNLABORED RESPIRATIONS AT 18BPM, NO S/S OF DISTRESS/PAIN OR NAUSEA. ABX RUNNING SCHEDULED. CALL LIGHT WITHIN REACH. WILL CONTINUE TO MONITOR AND ROUND Q1H AND PRN.
[2019-02-20] MEDS: SODIUM CHLORIDE 0.9% 1,000 ML IV SCH ×3 (03:00→18:19)
--- NOTE | 2019-02-20 04:35 | NUR ---
PATIENT REFUSED BLOOD DRAW FOR AM LABS TAG STRINGER WILL TRY AGAIN LATER
[2019-02-20 05:00] VITALS: BP 96/71
[2019-02-20] MEDS: NYSTATIN (MOUTH-THROAT) 500,000 UNITS/5 ML SUSP MT SCH ×4 (06:00→22:24)
--- NOTE | 2019-02-20 06:00 | NUR ---
0600 ORAL SOLUTION REFUSED PATIENT EDUCATED ON BENEFITS OF TAKING MEDICATION. PATIENT CONTINUES TO REFUSE. WILL TRY AGAIN.
--- NOTE | 2019-02-20 07:45 | NUR ---
Opening Patient in bed, asleep, bed in lowest position, call light within reach. No distress noted at this time. Will f/u with morning assessment. patient is awaiting EGD, and radiology consult for biopsy as well today. Patient is NPO and has been NPO since midnight according to noc nurse. patient had a low blood pressure in 60-70s systolic according to noc nurse with the previous dayshift nurse. will follow up with this and closely monitor
--- NOTE | 2019-02-20 08:20 | NUR ---
nurse aid per the aid, the blood pressure was 87/57 upon assessment patient is asymptomatic, elevated the legs, and lowered the head of bed, assured IV fluids are on and running as ordered at 125 mL/hr will reassess
[2019-02-20] MEDS ORDERED: diphenhdrAMINE HCL 50 MG/1 ML VL ONE (08:22)
[2019-02-20] MEDS ORDERED: SODIUM CHLORIDE LOCK 10 ML ONE (08:22)
[2019-02-20] MEDS ORDERED: LIDOCAINE VISCOUS 2% 15ML UD ONE (08:22)
[2019-02-20] MEDS ORDERED: MIDAZOLAM HCL 5 MG/ML-1ML VIAL ONE (08:22)
[2019-02-20] MEDS ORDERED: fentaNYL CITRATE 100 MCG/2 ML VL ONE (08:22)
[2019-02-20 09:00] VITALS: BP 87/57
[2019-02-20] MEDS ORDERED: GASTROGRAFIN 30 ML SOL ONE (09:58)
[2019-02-20] MEDS: DULoxetine HCL 30 MG CAP PO SCH (10:00)
[2019-02-20] MEDS: SULFAMETHOX W/TRIMETH(800/160MG) DS TAB PO SCH ×2 (10:00→22:24)
[2019-02-20] MEDS ORDERED: MIDAZOLAM HCL 1MG/1ML-2 ML VIAL IV ONE (10:15)
[2019-02-20] MEDS ORDERED: fentaNYL CITRATE 100 MCG/2 ML VL IV ONE (10:15)
[2019-02-20] MEDS: FLUCONAZOLE 200MG/100ML 100 ML IV SCH (10:26)
[2019-02-20] MEDS: FILGRASTIM (TBO) 300 MCG/0.5 ML SYRG SC SCH (10:26)
--- NOTE | 2019-02-20 10:59 | NUR ---
PT 1st AM visit, RN deferred PT due to low B/P. 2nd AM visit, patient refused to be OOB with c/o cold room temperature but requested to comeback later. Addendum: 02/20/19 at 1101 by CHRISTIE ADAMS PTT Amended: Links added.
[2019-02-20 13:00] VITALS: BP 106/72
--- NOTE | 2019-02-20 14:00 | NUR ---
PT Patient stated that she can walk and do exercise and does not need physical therapy. TOMER Merino notified of pt's refusal to work with physical therapy. Addendum: 02/20/19 at 1402 by CHRISTIE ADAMS PTT Amended: Links added.
--- NOTE | 2019-02-20 15:10 | NUR ---
patient off unit for the biopsies, called lab to please meet them there for blood draw. they stated the patient has been refusing, but recently the patient stated she agrees to allow them to try to draw her blood
[2019-02-20 17:00] VITALS: BP 112/71
[2019-02-20 18:57] LABS: Basophils # (auto) 0 uL; Eosinophils # (auto) 0 uL; Lymphocytes # (auto) 0.1 uL; Mean Corpuscular Hgb Conc. 33.9 g/dL (32.0-36.0); Monocytes # (auto) 0.2 uL; Neutrophils # (auto) 4.6 uL; White Blood Cell 4.9 10^3/uL (4.4-10.8)
--- NOTE | 2019-02-20 19:00 | NUR ---
Opening Shift Note Assumed care of patient, awake and alert. No S/S of distress/SOB or pain. Instructed on POC and to call for assist PRN, will continue to monitor for changes Q1hr and PRN.
[2019-02-20 19:01] LABS: Basophils % (auto) 0.4 % (0.0-2.0); Hematocrit 25.7 % (36.0-46.0); Hemoglobin 8.7 g/dL (12.2-16.2); Lymphocytes % (auto) 2.6 % (10.0-50.0); Mean Corpuscular Volume 73.8 fL (80.0-100.0); Monocytes % (auto) 3.2 % (0.0-12.0); Neutrophils % (auto) 93.8 % (37.0-80.0); Platelet Count (auto) 142 10^3/uL (140-450); Red Blood Cells 3.49 10^6/uL (4.0-5.20)
[2019-02-20 19:06] LABS: Red Cell Distribution Width 22.1 % (11.8-14.3)
[2019-02-20 19:17] LABS: Albumin 1.6 g/dL (3.4-5.0); BUN/Creatinine Ratio 11.4; Magnesium 1.7 mg/dL (1.6-2.6); Potassium 4.1 mmol/L (3.5-5.1)
[2019-02-20 19:19] LABS: Bilirubin, Total 0.3 mg/dL (0.2-1.0); Phosphorus 2.4 mg/dL (2.5-4.90); Total Protein 5.5 g/dL (6.4-8.2)
[2019-02-20 19:26] LABS: Ferritin 363.1 ng/mL (10-322); Folate (Folic Acid) 3.52 ng/mL (5.38-24)
[2019-02-20 20:11] LABS: % Iron Saturation 21.7 % (15-50)
[2019-02-20 22:00] VITALS: BP 92/52
[2019-02-20] MEDS: VANCOMYCIN 1,250 MG in D5W 5% 250 ML IV SCH (22:24)
[2019-02-20] MEDS: traZODone HCL 50 MG TAB PO SCH (22:24)
--- NOTE | 2019-02-21 00:36 | NUR ---
Care endorsed to Angelique JEFF.
[2019-02-21] MEDS: SODIUM CHLORIDE 0.9% 1,000 ML IV SCH ×3 (03:00→18:09)
[2019-02-21 05:00] VITALS: BP 111/68
[2019-02-21] MEDS: PIPERACILLIN-TAZOB 3.375GM 100 ML IV SCH ×3 (05:50→18:00)
[2019-02-21] MEDS: NYSTATIN (MOUTH-THROAT) 500,000 UNITS/5 ML SUSP MT SCH ×4 (05:50→21:39)
--- NOTE | 2019-02-21 07:45 | NUR ---
Opening Patient in bed, asleep, bed in lowest position, call light within reach. No distress noted at this time. Will f/u with morning assessment. Awaiting echo results blood cultures negative x 2 lymph node biopsy completed yesterday 02/20 still awaiting thyroid biopsy per primary MD. new labs wbc 4.9 rbc 3.49 hgb 8.7 crea 1.23 iron 18 phosphate 2.4 calcium 7.0 awaiting EGD saturday, per dr Hussein. will continue to monitor this patient
[2019-02-21 09:00] VITALS: BP 106/69
[2019-02-21] MEDS: FLUCONAZOLE 200MG/100ML 100 ML IV SCH (09:20)
[2019-02-21] MEDS: FILGRASTIM (TBO) 300 MCG/0.5 ML SYRG SC SCH (09:22)
[2019-02-21] MEDS: SULFAMETHOX W/TRIMETH(800/160MG) DS TAB PO SCH ×2 (09:23→21:40)
[2019-02-21] MEDS: DULoxetine HCL 30 MG CAP PO SCH (10:00)
[2019-02-21] MEDS: CYANOCOBALAMIN 500 MCG TAB PO SCH (10:07)
[2019-02-21] MEDS: FOLIC ACID 1 MG TAB PO SCH (10:07)
--- NOTE | 2019-02-21 10:30 | NUR ---
md gasca states the patient may eat food today, and begin NPO process after midnight on Saturday for EGD on Saturday02/23/19. states the patient may be switched to cymbalta dosage of 30 mg daily, instead of the 20 mg daily dose.
[2019-02-21] MEDS ORDERED: DULoxetine HCL 30 MG CAP PO ONE (11:00)
--- NOTE | 2019-02-21 12:15 | NUR ---
pt at bedside patient displays ability to physically ambulate independently no distress noted, will continue to monitor this patient
[2019-02-21 13:00] VITALS: BP 149/67
[2019-02-21] MEDS: IRON SUCROSE COMPLEX 200 MG in SODIUM CHL 0.9% 100 ML IV SCH (13:00)
[2019-02-21 17:00] VITALS: BP 97/62
[2019-02-21] MEDS: HYDROcodone-ACET 5/325MG TAB PO PRN (18:00)
[2019-02-21] MEDS: VANCOMYCIN 1,250 MG in D5W 5% 250 ML IV SCH (21:39)
[2019-02-21] MEDS: traZODone HCL 50 MG TAB PO SCH (21:40)
[2019-02-21] MEDS: DOCUSATE SOD 100 MG CAP PO SCH (21:40)
[2019-02-21 22:00] VITALS: BP 103/59
[2019-02-21 22:20] LABS: Basophils # (auto) 0 uL; Eosinophils # (auto) 0 uL; Hematocrit 24.7 % (36.0-46.0); Hemoglobin 8.6 g/dL (12.2-16.2); Monocytes # (auto) 0.3 uL; Neutrophils % (auto) 93.8 % (37.0-80.0); Platelet Count (auto) 127 10^3/uL (140-450); White Blood Cell 7.4 10^3/uL (4.4-10.8)
[2019-02-21 22:21] LABS: Basophils % (auto) 0.6 % (0.0-2.0); Eosinophils % (auto) 0.1 % (0.0-7.0); Lymphocytes # (auto) 0.1 uL; Mean Corpuscular Hemoglobin 25.5 pg (28.0-32.0); Mean Corpuscular Hgb Conc. 34.9 g/dL (32.0-36.0); Mean Corpuscular Volume 73.1 fL (80.0-100.0); Monocytes % (auto) 3.5 % (0.0-12.0); Neutrophils # (auto) 6.9 uL; Red Blood Cells 3.38 10^6/uL (4.0-5.20); Red Cell Distribution Width 22.3 % (11.8-14.3)
[2019-02-21 22:38] LABS: Albumin 1.5 g/dL (3.4-5.0); Magnesium 1.6 mg/dL (1.6-2.6); Potassium 3.5 mmol/L (3.5-5.1)
[2019-02-21 22:40] LABS: BUN/Creatinine Ratio 10.7
[2019-02-21 22:49] LABS: Bilirubin, Total 0.2 mg/dL (0.2-1.0); Calcium 7.1 mg/dL (8.5-10.1); Total Protein 5.2 g/dL (6.4-8.2)
[2019-02-22] MEDS: PIPERACILLIN-TAZOB 3.375GM 100 ML IV SCH ×4 (00:09→17:54)
--- NOTE | 2019-02-22 00:30 | NUR ---
RN received call from lab regarding elevated vancomycin trough. Vancomycin trough was drawn after administration of vancomycin, lab draw is to be repeated for accurate reading.
[2019-02-22] MEDS: SODIUM CHLORIDE 0.9% 1,000 ML IV SCH ×3 (03:00→17:54)
--- NOTE | 2019-02-22 04:43 | NUR ---
Patient is refusing morning vitals and changing of battery for her tele monitor.
--- NOTE | 2019-02-22 05:00 | NUR ---
PT REFUSED 0500 VITALS AND BATTERY CHANGE FOR RN DOCUMENT IMPROVEMENT SPECIALIST NOTIFIED.
[2019-02-22] MEDS: NYSTATIN (MOUTH-THROAT) 500,000 UNITS/5 ML SUSP MT SCH ×4 (05:41→22:00)
[2019-02-22 07:23] LABS: Basophils # (auto) 0 uL; Eosinophils # (auto) 0 uL; Hemoglobin 8.7 g/dL (12.2-16.2); Lymphocytes # (auto) 0.1 uL; Mean Corpuscular Hemoglobin 25.5 pg (28.0-32.0); Monocytes # (auto) 0.3 uL; Neutrophils # (auto) 5.8 uL; Neutrophils % (auto) 92.7 % (37.0-80.0); White Blood Cell 6.2 10^3/uL (4.4-10.8)
[2019-02-22 07:25] LABS: Basophils % (auto) 0.6 % (0.0-2.0); Eosinophils % (auto) 0.2 % (0.0-7.0); Hematocrit 25.1 % (36.0-46.0); Lymphocytes % (auto) 2.1 % (10.0-50.0); Mean Corpuscular Hgb Conc. 34.5 g/dL (32.0-36.0); Monocytes % (auto) 4.4 % (0.0-12.0); Platelet Count (auto) 130 10^3/uL (140-450)
[2019-02-22 07:27] LABS: Red Cell Distribution Width 22.9 % (11.8-14.3)
[2019-02-22 09:00] VITALS: BP 86/53
[2019-02-22] MEDS: FOLIC ACID 1 MG TAB PO SCH (10:00)
[2019-02-22] MEDS: DOCUSATE SOD 100 MG CAP PO SCH ×2 (10:00→22:00)
[2019-02-22] MEDS: DULoxetine HCL 30 MG CAP PO SCH (10:00)
[2019-02-22] MEDS: FLUCONAZOLE 200MG/100ML 100 ML IV SCH (10:00)
[2019-02-22] MEDS: SULFAMETHOX W/TRIMETH(800/160MG) DS TAB PO SCH ×2 (10:00→22:00)
[2019-02-22] MEDS: CYANOCOBALAMIN 500 MCG TAB PO SCH (10:00)
[2019-02-22 13:00] VITALS: BP 110/70
[2019-02-22] MEDS: IRON SUCROSE COMPLEX 200 MG in SODIUM CHL 0.9% 100 ML IV SCH (16:01)
[2019-02-22] MEDS: HYDROcodone-ACET 5/325MG TAB PO PRN (16:01)
[2019-02-22 17:00] VITALS: BP 108/67
--- NOTE | 2019-02-22 17:50 | NUR ---
MAUNGLAY ROUNDING AT BEDSIDE
[2019-02-22 22:00] VITALS: BP 98/58
[2019-02-22] MEDS: VANCOMYCIN 1,250 MG in D5W 5% 250 ML IV SCH (22:00)
[2019-02-22] MEDS: traZODone HCL 50 MG TAB PO SCH (22:00)
[2019-02-23] MEDS: PIPERACILLIN-TAZOB 3.375GM 100 ML IV SCH ×4 (00:23→17:22)
[2019-02-23] MEDS: SODIUM CHLORIDE 0.9% 1,000 ML IV SCH ×3 (03:00→21:26)
[2019-02-23 05:00] VITALS: BP 107/68
[2019-02-23] MEDS: NYSTATIN (MOUTH-THROAT) 500,000 UNITS/5 ML SUSP MT SCH ×4 (05:42→21:45)
[2019-02-23] MEDS ORDERED: CIPROFLOXACIN 400MG/200ML 200 ML IV ONE (07:36)
[2019-02-23 08:00] VITALS: BP 99/66
[2019-02-23 08:10] LABS: Immunoglobulin G, Serum 2108 mg/dL (700-1600)
[2019-02-23] MEDS ORDERED: LIDOCAINE VISCOUS 2% 15ML UD ONE (08:44)
[2019-02-23] MEDS ORDERED: SODIUM CHLORIDE LOCK 10 ML ONE (08:44)
[2019-02-23] MEDS ORDERED: diphenhdrAMINE HCL 50 MG/1 ML VL ONE (08:45)
--- NOTE | 2019-02-23 08:49 | NUR ---
02/22/19 Pt refused to get out of bed w/ PT. Pt states she is independent and is able to do exercises on her own. Pt had red TB tied to bed rails for exercises. Advised patient will remove her from PT list, Pt agreed and understood Addendum: 02/23/19 at 0851 by Bettina Toledo PT Amended: Links added.
[2019-02-23 09:00] VITALS: BP 99/66
[2019-02-23] MEDS: FLUCONAZOLE 200MG/100ML 100 ML IV SCH (09:35)
[2019-02-23] MEDS: SULFAMETHOX W/TRIMETH(800/160MG) DS TAB PO SCH ×2 (09:36→21:45)
[2019-02-23] MEDS: FOLIC ACID 1 MG TAB PO SCH (09:36)
[2019-02-23] MEDS: DOCUSATE SOD 100 MG CAP PO SCH ×2 (09:36→21:45)
[2019-02-23] MEDS: DULoxetine HCL 30 MG CAP PO SCH (09:37)
[2019-02-23] MEDS: CYANOCOBALAMIN 500 MCG TAB PO SCH (09:37)
--- NOTE | 2019-02-23 10:30 | NUR ---
MD PONCHO PAINTER AT BEDSIDE. NO NEW ORDERS RECIEVED
--- NOTE | 2019-02-23 10:40 | NUR ---
PT OFF UNIT FOR PROCEDURE NO DISTRESS NOTED AT TIME OF DEPARTURE
[2019-02-23] MEDS: MIDAZOLAM HCL 5 MG/ML-1ML VIAL ONE ×2 (10:54→10:57)
[2019-02-23] MEDS: fentaNYL CITRATE 100 MCG/2 ML VL ONE ×2 (10:54→10:57)
[2019-02-23 11:26] LABS: Hepatitis B Surface Antibody Negative
[2019-02-23] MEDS ORDERED: PANTOPRAZOLE 40 MG TAB PO ONE (11:30)
--- NOTE | 2019-02-23 11:51 | NUR ---
PT RETURNED TO UNIT FROM POST-OP. RECIEVED REPORT FROM POST-OP RN. PT IS AWAKE AND ALERT. PT IS CURRENTLY REFUSING TO BE PUT BACK ON TELE. PT EDUCATED ABOUT IMPORTANCE OF HEART MONITOR. PT VERBALIZED UNDERSTANDING AND CONTINUES TO REFUSE
[2019-02-23 13:00] VITALS: BP 95/61
[2019-02-23 13:02] LABS: Hepatitis B Core IgM Negative; Hepatitis B Surface Antigen Negative (Negative)
[2019-02-23 13:03] LABS: Hepatitis C Antibody Negative (Negative)
--- NOTE | 2019-02-23 14:50 | NUR ---
CONTACTED LAB REGARDING LAB RESULTS BEING SENT OVER TO MD PAINTER OFFICE. LAB INFORMED RN THAT THE SPECIFIC LABS ORDERED ARE UNABLE TO BE INPUT INTO THE MAR. WILL INFORM
[2019-02-23] MEDS: IRON SUCROSE COMPLEX 200 MG in SODIUM CHL 0.9% 100 ML IV SCH (15:00)
--- NOTE | 2019-02-23 15:09 | NUR ---
PAGED REGARDING LAB RESULTS
[2019-02-23] MEDS: VANCOMYCIN 1GM/250ML 250 ML IV SCH (16:20)
[2019-02-23] MEDS: HYDROcodone-ACET 5/325MG TAB PO PRN (16:29)
[2019-02-23 17:00] VITALS: BP 102/71
--- NOTE | 2019-02-23 17:28 | NUR ---
PAGED REGARDING PT HEARTBURN. NEW ORDERS RECIEVED
[2019-02-23] MEDS ORDERED: ALUM & MAG HYDROX-SIMETH LIQ(MAALOX) 30 ML PO ONE (17:30)
[2019-02-23 21:33] VITALS: BP 107/60
[2019-02-23] MEDS: traZODone HCL 50 MG TAB PO SCH (21:46)
[2019-02-24] MEDS: PIPERACILLIN-TAZOB 3.375GM 100 ML IV SCH ×5 (00:01→23:55)
[2019-02-24] MEDS: SODIUM CHLORIDE 0.9% 1,000 ML IV SCH ×3 (02:43→23:55)
[2019-02-24 04:59] VITALS: BP 94/53
[2019-02-24] MEDS: NYSTATIN (MOUTH-THROAT) 500,000 UNITS/5 ML SUSP MT SCH ×5 (05:45→21:57)
--- NOTE | 2019-02-24 07:18 | NUR ---
OPENING SHIFT NOTE PT IS RESTING IN BED. RESPIRATIONS ARE EVEN AND NON-LABORED. BED IS LOCKED AND IN LOWEST POSITION. CALL LIGHT IS WITHIN REACH.
[2019-02-24 08:55] VITALS: BP 104/66
[2019-02-24 09:06] LABS: Potassium 4.1 mmol/L (3.5-5.1)
[2019-02-24] MEDS: FLUCONAZOLE 200MG/100ML 100 ML IV SCH (09:28)
[2019-02-24] MEDS: FOLIC ACID 1 MG TAB PO SCH (09:28)
[2019-02-24] MEDS: SULFAMETHOX W/TRIMETH(800/160MG) DS TAB PO SCH ×2 (09:29→21:56)
[2019-02-24] MEDS: PANTOPRAZOLE 40 MG TAB PO SCH (09:29)
[2019-02-24] MEDS: DOCUSATE SOD 100 MG CAP PO SCH ×3 (09:29→21:57)
[2019-02-24] MEDS: DULoxetine HCL 30 MG CAP PO SCH (09:29)
[2019-02-24] MEDS: CYANOCOBALAMIN 500 MCG TAB PO SCH (09:30)
--- NOTE | 2019-02-24 10:00 | NUR ---
PT OFF UNIT FOR PROCEDURE
--- NOTE | 2019-02-24 10:00 | NUR ---
MD PONCHO PAINTER ROUNDING ON PATIENT. ALL QUESTIONS AND CONCERNS ADDRESSED AT THIS TIME. NO NEW ORDERS Addendum: 02/24/19 at 1139 by YESENIA ESPOSITO RN RN INCORRECT TIME CORRECT TIME 1100
[2019-02-24] MEDS ORDERED: LIDOCAINE 2%HCL (LOCAL ANESTH.) INJ 20ML MDV ONE (10:07)
--- NOTE | 2019-02-24 10:58 | NUR ---
PT BACK TO UNIT FROM PROCEDURE
--- NOTE | 2019-02-24 11:15 | NUR ---
CONTACTED LAB REGARDING LAB PANEL MD PAINTER WANTED SPECIFIC LAB INFORMATION SENT TO THE FLOOR FOR THE PT'S CHART.
[2019-02-24] MEDS: IRON SUCROSE COMPLEX 200 MG in SODIUM CHL 0.9% 100 ML IV SCH (12:00)
--- NOTE | 2019-02-24 12:52 | NUR ---
CONTACTED LAB REGARDING LAB PANEL MD PAINTER WANTED SPECIFIC LAB INFORMATION SENT TO THE FLOOR FOR THE PT'S CHART. ACCORDING TO LANDSCAPE AND YARDWORK LABORER DUE TO THE CONFIDENTIAL NATURE OF THE LAB INFORMATION A [place] MUST PICK THE INFORMATION UP AND BRING IT TO THE FLOOR IN A CONFIDENTIAL ENVELOPE.
--- NOTE | 2019-02-24 12:55 | NUR ---
NUTRITION ASSESSMENT NOTES Please refer to link notes of nutrition screen form filed under the intervention section of the plan of care for further details. Est. Needs: 1550 kcal to 1900 kcal (25-30 kcal/kgBW), 63 gms to 88 gms pro (1.0-1.4 gms/kgBW d/t severe hypoalbuminemia). Will continue to monitor pertinent labs and reassess nutrient need prn Thank you. Addendum: 02/24/19 at [address]án[address] RD Amended: Links added.
[2019-02-24 13:00] VITALS: BP 105/72
--- NOTE | 2019-02-24 14:26 | NUR ---
TOÑA PAINTER REGAUAYALAING NUTRITIONAL ASSESSMENT. AWAITING CALL BACK
--- NOTE | 2019-02-24 15:45 | NUR ---
PAGED MD PAINTER REGARDING REQUESTED VIRAL MEDICATION
--- NOTE | 2019-02-24 15:58 | NUR ---
MD RETURNED PAGE REGARDING MEDICATION. MD WILL CONTACT PHARMACY IN REGARDS TO THE NEW ORDER
[2019-02-24 17:00] VITALS: BP 113/80
[2019-02-24] MEDS: Ensure Enlive Strawberry 8oz Bottle PO SCH (17:08)
[2019-02-24] MEDS: ONDANSETRON HCL 4 MG/2 ML VIAL IV PRN (20:31)
[2019-02-24] MEDS: HYDROcodone-ACET 5/325MG TAB PO PRN (20:32)
[2019-02-24] MEDS: traZODone HCL 50 MG TAB PO SCH (21:57)
[2019-02-24 22:00] VITALS: BP 109/46
[2019-02-25] MEDS: SODIUM CHLORIDE 0.9% 1,000 ML IV SCH ×3 (03:00→19:51)
[2019-02-25] MEDS: VANCOMYCIN 1GM/250ML 250 ML IV SCH (04:45)
[2019-02-25 05:00] VITALS: BP 103/58
[2019-02-25] MEDS: NYSTATIN (MOUTH-THROAT) 500,000 UNITS/5 ML SUSP MT SCH ×4 (06:00→21:56)
[2019-02-25] MEDS: PIPERACILLIN-TAZOB 3.375GM 100 ML IV SCH ×3 (06:19→17:32)
--- NOTE | 2019-02-25 07:17 | NUR ---
OPENING SHIFT NOTE PT IS RESTING IN BED. RESPIRATIONS ARE EVEN AND NON-LABORED. BED IS LOCKED AND IN LOWEST POSITION. CALL LIGHT IS WITHIN REACH.
[2019-02-25 09:00] VITALS: BP 106/74
[2019-02-25] MEDS: DOCUSATE SOD 100 MG CAP PO SCH ×2 (10:00→21:56)
[2019-02-25] MEDS: Ensure Enlive Strawberry 8oz Bottle PO SCH ×3 (10:18→17:33)
[2019-02-25] MEDS: PANTOPRAZOLE 40 MG TAB PO SCH (10:18)
[2019-02-25] MEDS: FLUCONAZOLE 200MG/100ML 100 ML IV SCH (10:18)
[2019-02-25] MEDS: DULoxetine HCL 30 MG CAP PO SCH (10:18)
[2019-02-25] MEDS: SULFAMETHOX W/TRIMETH(800/160MG) DS TAB PO SCH ×2 (10:18→21:58)
[2019-02-25] MEDS: FOLIC ACID 1 MG TAB PO SCH (10:18)
[2019-02-25] MEDS: CYANOCOBALAMIN 500 MCG TAB PO SCH (10:19)
--- NOTE | 2019-02-25 10:40 | NUR ---
MD PONCHO PAINTER AT BEDSIDE. ALL QUESTIONS AND CONCERNS ADDRESSED AT THIS TIME.
[2019-02-25] MEDS: HYDROcodone-ACET 5/325MG TAB PO PRN (10:59)
[2019-02-25] MEDS ORDERED: AZITHROMYCIN 250 MG TAB PO ONE (11:00)
--- NOTE | 2019-02-25 11:28 | NUR ---
TRANSFER. transfer packet faxed to [facility]
--- NOTE | 2019-02-25 11:30 | NUR ---
PAGED MD PAINTER REGARDING ORDER FOR AZITHROMYCIN. ACCORDING TO MATTING PRESS TENDER [facility] DOES NOT CARRY SPECIFIED DOSE. MD PAINTER GAVE NEW ORDER TORB.
--- NOTE | 2019-02-25 12:53 | NUR ---
Transfer: Valarie from [facility] called to say they are still looking for accepting
[2019-02-25 13:00] VITALS: BP 112/79
[2019-02-25] MEDS: IRON SUCROSE COMPLEX 200 MG in SODIUM CHL 0.9% 100 ML IV SCH (13:32)
[2019-02-25] MEDS: ONDANSETRON HCL 4 MG/2 ML VIAL IV PRN (13:41)
--- NOTE | 2019-02-25 14:46 | NUR ---
asked Estephania primary RN to fax me path reports so I can fax to [facility] and [facility]. [facility] denied pt due to their medical department capped out on pts
--- NOTE | 2019-02-25 15:25 | NUR ---
Transfer: I have faxed to [facility] and the [facility] [phone] and I also faxed to [facility] and called Мария to give me auth for transport and facility. She is working on getting [facility] now and will call me back once she has [facility]
[2019-02-25] MEDS: ACYCLOVIR SOD 50MG/ML 500 MG in D5W 5% 100 ML IV SCH ×2 (15:39→21:49)
--- NOTE | 2019-02-25 15:55 | NUR ---
Transfer [facility] faxed transfer back agreement to [facility]. Judi called me with with [facility]. [facility] auth is [id number] facility auth is [id number]. Dr Arroyo contacted by me to call Dr. Pryor at [phone] o/c MD at [facility] to see if he will accept pt
--- NOTE | 2019-02-25 16:08 | NUR ---
Transportation [facility] is on "will call"
[2019-02-25 16:57] VITALS: BP 106/67
--- NOTE | 2019-02-25 19:10 | NUR ---
OPENING SHIFT NOTE PT IS RESTING IN BED. RESPIRATIONS ARE EVEN AND NON-LABORED. POC DISCUSSED AND QUESTIONS ANSWERED. BED IS LOCKED AND IN LOWEST POSITION. CALL LIGHT IS WITHIN REACH. WILL CONTINUE TO ROUND Q1HR AND PRN.
[2019-02-25] MEDS: MORPHINE SULFATE 4 MG/ML SYR/VIAL IV PRN (19:58)
[2019-02-25] MEDS: traZODone HCL 50 MG TAB PO SCH (21:58)
[2019-02-25 22:00] VITALS: BP 102/70
[2019-02-26] MEDS: PIPERACILLIN-TAZOB 3.375GM 100 ML IV SCH ×2 (00:16→06:36)
[2019-02-26] MEDS: SODIUM CHLORIDE 0.9% 1,000 ML IV SCH (03:00)
[2019-02-26] MEDS: VANCOMYCIN 1GM/250ML 250 ML IV SCH (04:02)
[2019-02-26] MEDS: ACYCLOVIR SOD 50MG/ML 500 MG in D5W 5% 100 ML IV SCH ×3 (05:18→22:30)
[2019-02-26 05:49] VITALS: BP 108/73
[2019-02-26] MEDS: NYSTATIN (MOUTH-THROAT) 500,000 UNITS/5 ML SUSP MT SCH (05:59)
[2019-02-26 08:02] LABS: Hemoglobin 7.2 g/dL (12.2-16.2)
--- NOTE | 2019-02-26 08:03 | NUR ---
CRITICAL VALUE WBC 1.7, DR. PAINTER MADE AWARE, NO FURTHER ORDER. Addendum: 02/26/19 at 0858 by Cora Bourne RN WRONG TIME ACTUAL NOTE FOR 0824.
--- NOTE | 2019-02-26 08:03 | NUR ---
PT SEEN BY DR. PAINTER PER DR. PAINTER HE WILL TRY TO TRANSFER THE PT.
[2019-02-26 08:06] LABS: Hematocrit 21.4 % (36.0-46.0); Mean Corpuscular Hemoglobin 25.3 pg (28.0-32.0); Mean Corpuscular Hgb Conc. 33.8 g/dL (32.0-36.0); Platelet Count (auto) 145 10^3/uL (140-450); Red Blood Cells 2.85 10^6/uL (4.0-5.20)
[2019-02-26 08:18] LABS: Red Cell Distribution Width 23.3 % (11.8-14.3)
[2019-02-26 08:22] LABS: White Blood Cell 1.7 10^3/uL (4.4-10.8)
[2019-02-26 08:34] LABS: Basophils % (manual) 0 (0.0-2.0); Blast Cells 0; Eosinophils % (manual) 0 (0-7); Metamyelocytes % 0; Myelocytes % 0; Promyelocytes % 0; Reactive Lymphocytes 0
[2019-02-26 08:37] LABS: Band Neutrophils % (manual) 8; Lymphocytes % (manual) 7 (10.0-50.0); Monocytes % (manual) 11 (0-12)
--- NOTE | 2019-02-26 08:43 | NUR ---
Transfer: I called [facility] and they will do a bed assessment in about 20 min. I called [facility] and Dr. Camilo was to talk with their ID MD, I don't know if that happened and Dr. Camilo was to talk to DR. Pryor at [facility]. I have not heard back from Dr. Camilo to know if he spoke to either of these MDs
[2019-02-26 09:00] VITALS: BP 89/58
[2019-02-26] MEDS ORDERED: FILGRASTIM(TBO) 480 MCG/0.8 ML SYRG SC ONE (09:00)
--- NOTE | 2019-02-26 09:00 | NUR ---
[place] [facility] called and stated Dr. Camilo called them and cancelled transfer request to their facility and that he has pt going somewhere else. Will speak to to know what facility pt going to
[2019-02-26] MEDS: AZITHROMYCIN 500MG/ 250ML 250 ML IV SCH (10:00)
[2019-02-26] MEDS: DOCUSATE SOD 100 MG CAP PO SCH ×2 (10:00→22:30)
[2019-02-26] MEDS: FLUCONAZOLE 200MG/100ML 100 ML IV SCH (10:00)
[2019-02-26] MEDS: PANTOPRAZOLE 40 MG TAB PO SCH (10:01)
[2019-02-26] MEDS: DULoxetine HCL 30 MG CAP PO SCH (10:01)
[2019-02-26] MEDS: CYANOCOBALAMIN 500 MCG TAB PO SCH (10:01)
[2019-02-26] MEDS: SULFAMETHOX W/TRIMETH(800/160MG) DS TAB PO SCH ×2 (10:01→22:30)
[2019-02-26] MEDS: FOLIC ACID 1 MG TAB PO SCH (10:01)
[2019-02-26] MEDS: Ensure Enlive Strawberry 8oz Bottle PO SCH ×3 (10:10→18:00)
[2019-02-26] MEDS: MORPHINE SULFATE 4 MG/ML SYR/VIAL IV PRN ×2 (10:10→14:07)
--- NOTE | 2019-02-26 10:13 | NUR ---
Spoke to Dr. Marti approx an hour ago and asked him if pt going to [facility]. Dr. Marti stated yes but we do not have an accepting MD nor bed. I also received a call from [facility] and they are to send me a transfer back agreement which I am still waiting for.
--- NOTE | 2019-02-26 10:37 | NUR ---
Transfer: called [facility] and informed transfer RN still have not received transfer back agreement, She stated she will send it now
--- NOTE | 2019-02-26 11:31 | NUR ---
Transfer: Spoke to Valarie at [facility] to see if she can fax transfer back agreement since I still have not received it. She also stated they are still working on getting MD and they have no beds at this time
[2019-02-26 13:00] VITALS: BP 105/73
--- NOTE | 2019-02-26 13:17 | NUR ---
Transfer, Spoke to Maria Del Carmen at [facility] and she stated they have paged ID MD to see if he will see pt once pt gets there. Await call back
[2019-02-26 17:00] VITALS: BP 100/67
--- NOTE | 2019-02-26 19:20 | NUR ---
Opening Shift Note Assumed care of patient, awake and alert. No S/S of distress/SOB or pain. Safety measures in place side rails x2 up, bed in lowest position, call light within reach. Instructed on POC and to call for assist PRN, will continue to monitor for changes Q1hr and PRN.
[2019-02-26 21:00] VITALS: BP 102/65
[2019-02-26] MEDS: traZODone HCL 50 MG TAB PO SCH (22:30)
[2019-02-27] MEDS: VANCOMYCIN 1GM/250ML 250 ML IV SCH (04:26)
[2019-02-27 05:00] VITALS: BP 90/58
[2019-02-27] MEDS: ACYCLOVIR SOD 50MG/ML 500 MG in D5W 5% 100 ML IV SCH ×3 (06:00→22:50)
[2019-02-27 08:11] LABS: Basophils # (auto) 0 uL; Eosinophils # (auto) 0 uL; Hemoglobin 7.1 g/dL (12.2-16.2); Monocytes # (auto) 0.4 uL
[2019-02-27 08:13] LABS: Lymphocytes # (auto) 0.4 uL; Lymphocytes % (auto) 5.9 % (10.0-50.0); Mean Corpuscular Hemoglobin 25.4 pg (28.0-32.0); Mean Corpuscular Hgb Conc. 33.7 g/dL (32.0-36.0); Mean Corpuscular Volume 75.3 fL (80.0-100.0); Neutrophils # (auto) 6.2 uL; Neutrophils % (auto) 88.1 % (37.0-80.0); Platelet Count (auto) 158 10^3/uL (140-450); Red Blood Cells 2.79 10^6/uL (4.0-5.20); White Blood Cell 7.1 10^3/uL (4.4-10.8)
[2019-02-27 08:17] LABS: Red Cell Distribution Width 22.9 % (11.8-14.3)
--- NOTE | 2019-02-27 08:29 | NUR ---
CALLED SYLVIA WELFARE ADVISER RN, SHE CONFIRMED ZOVIRAX DOSE AT 6AM WAS GIVEN.
[2019-02-27 08:31] LABS: Albumin 1.3 g/dL (3.4-5.0); Calcium 7.1 mg/dL (8.5-10.1); Magnesium 1.4 mg/dL (1.6-2.6); Potassium 3.9 mmol/L (3.5-5.1)
[2019-02-27 08:35] LABS: Bilirubin, Total 0.2 mg/dL (0.2-1.0); Total Protein 5.2 g/dL (6.4-8.2)
--- NOTE | 2019-02-27 08:55 | NUR ---
TRANSFER: Called [facility] and have to wait for CM to call me back since she could not talk with me at time of my call. Called [facility] and they have no beds and will re evalute at 1200 hrs. I faxed and called to [facility]. I spoke to Jenny at transfer center and she is to review paperwork and call me back.
[2019-02-27 09:00] VITALS: BP 88/49
[2019-02-27] MEDS: FLUCONAZOLE 200MG/100ML 100 ML IV SCH (09:15)
[2019-02-27] MEDS: Ensure Enlive Strawberry 8oz Bottle PO SCH ×3 (09:15→18:20)
[2019-02-27] MEDS: PANTOPRAZOLE 40 MG TAB PO SCH (09:43)
[2019-02-27] MEDS: AZITHROMYCIN 500MG/ 250ML 250 ML IV SCH (09:43)
[2019-02-27] MEDS: FOLIC ACID 1 MG TAB PO SCH (09:44)
[2019-02-27] MEDS: DULoxetine HCL 30 MG CAP PO SCH (09:44)
[2019-02-27] MEDS: SULFAMETHOX W/TRIMETH(800/160MG) DS TAB PO SCH ×2 (09:44→22:51)
[2019-02-27] MEDS: DOCUSATE SOD 100 MG CAP PO SCH ×2 (09:45→22:00)
[2019-02-27] MEDS: CYANOCOBALAMIN 500 MCG TAB PO SCH (09:45)
[2019-02-27 10:23] VITALS: BP 98/68
[2019-02-27] MEDS: MORPHINE SULFATE 4 MG/ML SYR/VIAL IV PRN ×2 (10:23→18:32)
[2019-02-27] MEDS ORDERED: SODIUM CHLORIDE 0.9% 1,000 ML IV SCH (11:45)
[2019-02-27 13:00] VITALS: BP 93/66
--- NOTE | 2019-02-27 15:48 | NUR ---
Nutrition Follow-up Notes Wt.: 64.7 kg as of yesterday. Pt's asleep, no immediate family member at bedside during rounds this morning. Pt's no signs of distress noted earlier, currently on Regular diet with Ensure Enlive 1 carton BID, has inadequate PO intake aeb 50% ave. consumed meals (x5) in last 2.5 days d/t pt refused, per nursing. Est. Needs: 1550 kcal to 1900 kcal (25-30 kcal/kgBW), 63 gms to 88 gms pro (1.0-1.4 gms/kgBW d/t severe hypoalbuminemia). Will continue to monitor pertinent labs and reassess nutrient need prn Labs: Gluc 71 L, Na 135 L, Cl 110 H, Ca 7.1 L, Cr 1.16 H, ALT 9 L, Tpro 5.2 L, Alb 1.5 L Skin: Carlos scale 20, low risk, pt's skin intact per antenna rigger. GI: Pt's had 1 BM 02/26/19 per antenna rigger. PES: Increased nutrient needs r/t current/chronic medical/nutritional status aeb hypoglycemia, severe hypoalbuminemia, on ONS with <75% consumed meals. Altered nutrition related lab values r/t current/chronic medical condition aeb hypoglycemia, hyponatremia, hyperchloremia, hypocapnia, hypocalcemia and severe hypoalbuminemia Will continue to monitor PO intake, skin status, pertinent labs and weight trend. F/u in 3 to 5 days. Rec.: 1.) If Albumin continues trending down, consider Prostat 1 pkt BID. 2.) Continue close supervision during meals. 3.) Refer pt to RD for further nutrition education and weight monitoring upon discharge. 4.) Continue current plan of care.
[2019-02-27 17:00] VITALS: BP 98/60
[2019-02-27] MEDS ORDERED: FERROUS SULFATE 325 MG TAB PO SCH (18:00)
--- NOTE | 2019-02-27 18:00 | NUR ---
DR. PAINTER CALLED AND ORDERED T3, PER DR. PAINTER PT WAS ACCEPTED AT [facility].
--- NOTE | 2019-02-27 18:05 | NUR ---
FRED CALLED TO INFORM THAT BED IS NOT AVAILABLE AT [facility] UNTIL TOMORROW.
--- NOTE | 2019-02-27 18:14 | NUR ---
CALLED LAB TO FOLLOW UP VIRAL LOAD RESULT, RESULT IS NOT BACK YET.
--- NOTE | 2019-02-27 19:20 | NUR ---
Opening Shift Note Received report from Cora JEFF. Assumed care of patient, awake and alert. No S/S of distress/SOB or pain. Instructed on POC and to call for assist PRN, will continue to monitor for changes Q1hr and PRN.
--- NOTE | 2019-02-27 20:14 | NUR ---
Nataliya from [facility] transfer center called, re bed availability at [place] 5 bed 2. Per Nataliya, they can only hold the room for 4 hours, call back if there is any delay.
--- NOTE | 2019-02-27 21:00 | NUR ---
Report given to Argelia JEFF at [facility] [phone].
--- NOTE | 2019-02-27 21:09 | NUR ---
Patient's father Steven informed of transfer, verbalized understanding.
[2019-02-27 22:00] VITALS: BP 109/77
[2019-02-27] MEDS ORDERED: MAGNESIUM OXIDE 400 MG TAB PO SCH (22:00)
[2019-02-27] MEDS: traZODone HCL 50 MG TAB PO SCH (22:51)
--- NOTE | 2019-02-28 | NUR ---
Pt being trans to another hosp Order obtained for transfer of NITESH CASH to [facility]. Report called/given to Argelia JEFF. Report given to EMS transport team. Medication reconciliation form completed and copy given to patient. Transported via [facility] along with copied chart and imaging films/disk and all personal belongings. No distress noted on time of departure. Family notified of destination and room number, verbalized understanding.
== END 2019-02-28 | disposition short-term general hospital (02) | DRG 890 ==
LOC: ER 18:10 → TELE 18:11 → TELE-EAST 02-18 04:17
PROVIDERS: ADMIT Nurse Practitioner; ATTEND Internal Medicine Nephrology
PROC: 07BB3ZX Excision of Mesenteric Lymphatic, Percutaneous Approach, Diagnostic (ICD-10-PCS; 2019-02-20)
PROC: 0DB68ZX Excision of Stomach, Via Natural or Artificial Opening Endoscopic, Diagnostic (ICD-10-PCS; 2019-02-23)
PROC: 0D748ZZ Dilation of Esophagogastric Junction, Via Natural or Artificial Opening Endoscopic (ICD-10-PCS; 2019-02-23)
PROC: 0DB58ZX Excision of Esophagus, Via Natural or Artificial Opening Endoscopic, Diagnostic (ICD-10-PCS; principal; 2019-02-23 10:49)
PROC: 0GBG3ZX Excision of Left Thyroid Gland Lobe, Percutaneous Approach, Diagnostic (ICD-10-PCS; 2019-02-24)
DX: B20 Human immunodeficiency virus [HIV] disease (principal); A41.9 Sepsis, unspecified organism; A31.0 Pulmonary mycobacterial infection; N17.0 Acute kidney failure with tubular necrosis; E43 Unspecified severe protein-calorie malnutrition; D70.9 Neutropenia, unspecified; B37.0 Candidal stomatitis; K50.90 Crohn's disease, unspecified, without complications; K22.10 Ulcer of esophagus without bleeding; M79.3 Panniculitis, unspecified; I10 Essential (primary) hypertension; J45.909 Unspecified asthma, uncomplicated; K21.9 Gastro-esophageal reflux disease without esophagitis; K29.70 Gastritis, unspecified, without bleeding; K44.9 Diaphragmatic hernia without obstruction or gangrene; Z68.23 Body mass index [BMI] 23.0-23.9, adult; B00.9 Herpesviral infection, unspecified; D50.9 Iron deficiency anemia, unspecified; E04.2 Nontoxic multinodular goiter; E11.9 Type 2 diabetes mellitus without complications; F12.90 Cannabis use, unspecified, uncomplicated; F14.90 Cocaine use, unspecified, uncomplicated; F17.210 Nicotine dependence, cigarettes, uncomplicated; K59.00 Constipation, unspecified; Z82.49 Family history of ischemic heart disease and other diseases of the circulatory system; Z83.3 Family history of diabetes mellitus; Z91.14 Patient's other noncompliance with medication regimen; Z91.19 Patient's noncompliance with other medical treatment and regimen; Z98.891 History of uterine scar from previous surgery
CPT/HCPCS: 10022; 36415; 43239; 43248; 71046; 71250; 74018; 74150; 74176; 76536; 76942; 77012; 80048; 80053; 80202; 80307; 80320; 80329; 81001; 82150; 82232; 82533; 82607; 82728; 82746; 82784; 83010; 83540; 83550; 83605; 83615; 83690; 83735; 83880; 83883; 84100; 84132; 84439; 84443; 84480; 84550; 84702; 85007; 85025; 85027; 85045; 85610; 86334; 86360; 86701; 86703; 86705; 86706; 86803; 86880; 87040; 87086; 87340; 88172; 88187; 93306; 96361; 96365; 96367; 96375; G0378; J1447; J1450; J1756; J2001; J2250; J2405; J2543; J3480; J7060

== ENCOUNTER 2019-03-31 17:51 | Inpatient (IN) | payer MEDICAID ==
[~2019-03-31] VITALS: Ht 165.1 cm; Wt 55.7 kg
[~2019-03-31 17:51] MED LIST changes: +BICT1TAB PO
[2019-03-31] MEDS ORDERED: MORPHINE SULFATE 4 MG/ML SYR/VIAL IV ONE (18:15)
[2019-03-31] MEDS ORDERED: ONDANSETRON HCL 4 MG/2 ML VIAL IV ONE (18:15)
[2019-03-31 18:37] LABS: Basophils # (auto) 0 uL; Eosinophils # (auto) 0 uL; Hematocrit 24.4 % (36.0-46.0); Hemoglobin 7.8 g/dL (12.2-16.2); Lymphocytes # (auto) 0.1 uL; Monocytes # (auto) 0.1 uL; Monocytes % (auto) 7.5 % (0.0-12.0); Neutrophils # (auto) 0.7 uL
[2019-03-31 18:39] LABS: Basophils % (auto) 0.7 % (0.0-2.0); Eosinophils % (auto) 0.3 % (0.0-7.0); Lymphocytes % (auto) 11.1 % (10.0-50.0); Mean Corpuscular Hemoglobin 30.1 pg (28.0-32.0); Mean Corpuscular Hgb Conc. 32.1 g/dL (32.0-36.0); Mean Corpuscular Volume 93.8 fL (80.0-100.0); Neutrophils % (auto) 80.4 % (37.0-80.0); Nucleated Red Blood Cells % 0.6 %; Platelet Count (auto) 308 10^3/uL (140-450)
[2019-03-31 18:52] LABS: White Blood Cell 0.9 10^3/uL (4.4-10.8)
[2019-03-31 18:55] LABS: Calcium 7.2 mg/dL (8.5-10.1); Potassium 3.2 mmol/L (3.5-5.1)
[2019-03-31 18:57] LABS: BUN/Creatinine Ratio 19.3
[2019-03-31 19:08] LABS: Bilirubin, Total 0.2 mg/dL (0.2-1.0)
[2019-03-31] MEDS ORDERED: metroNIDAZOLE 500MG/100ML 100 ML IV ONE (19:30)
[2019-03-31] MEDS ORDERED: PIPERACILLIN-TAZOB 2.25GM 50 ML IV ONE (19:30)
[2019-03-31] MEDS ORDERED: POTASSIUM CHL 20 Meq TABLET PO ONE (19:30)
[2019-03-31] MEDS ORDERED: SODIUM CHLORIDE 0.9% 1,000 ML IV ONE (21:15)
[2019-03-31] MEDS ORDERED: TEMAZEPAM 15 MG CAP PO PRN (21:30)
[2019-03-31] MEDS ORDERED: ONDANSETRON HCL 4 MG/2 ML VIAL IV PRN (21:30)
[2019-03-31] MEDS ORDERED: ACETAMINOPHEN 325 MG TAB PO PRN (21:30)
[2019-03-31] MEDS ORDERED: FILGRASTIM(TBO) 480 MCG/0.8 ML SYRG SC ONE (22:30)
[2019-03-31 22:50] VITALS: BP 117/83
--- NOTE | 2019-03-31 22:50 | NUR ---
MS admit from ER NITESH CASH admitted to tele/MS after SBAR received. Patient oriented to BEBE KIMBLE, RN primary RN, west unit,298 room, b bed, and unit policies regarding patient care and visiting hours. Patient weighed by bedscale and encouraged to call if they need something. All questions and concerns addressed, patient verbalized understanding. Note:
[2019-03-31 23:00] VITALS: BP 117/83
[2019-03-31] MEDS: FAMOTIDINE 20 MG TAB PO SCH (23:10)
[2019-04-01] MEDS: HYDROcodone-ACET 5/325MG TAB PO PRN ×3 (00:01→16:27)
[2019-04-01 05:48] LABS: Hematocrit 23.5 % (36.0-46.0); Hemoglobin 7.4 g/dL (12.2-16.2); Mean Corpuscular Hemoglobin 29.6 pg (28.0-32.0); Mean Corpuscular Hgb Conc. 31.3 g/dL (32.0-36.0); Mean Corpuscular Volume 94.6 fL (80.0-100.0); Platelet Count (auto) 307 10^3/uL (140-450); Red Blood Cells 2.49 10^6/uL (4.0-5.20); White Blood Cell 3.9 10^3/uL (4.4-10.8)
[2019-04-01 05:49] LABS: Red Cell Distribution Width 26.8 % (11.8-14.3)
[2019-04-01 05:51] LABS: Basophils % (manual) 0 (0.0-2.0); Blast Cells 0; Eosinophils % (manual) 0 (0-7); Metamyelocytes % 0; Monocytes % (manual) 0 (0-12); Myelocytes % 0; Promyelocytes % 0; Reactive Lymphocytes 0
[2019-04-01 05:55] LABS: Albumin 1.8 g/dL (3.4-5.0); Anion Gap 3 (5-15); Blood Urea Nitrogen 13 mg/dL (7-18); Calcium 7.3 mg/dL (8.5-10.1); Carbon Dioxide 25 mmol/L (21-32); Chloride 114 mmol/L (98-107); Glucose 74 mg/dL (74-106); Lipase 401 U/L (73-393); Potassium 3.7 mmol/L (3.5-5.1); Sodium 142 mmol/L (136-145)
[2019-04-01 06:00] LABS: Alanine Aminotransferase 15 U/L (13-56); Alkaline Phosphatase 79 U/L (45-117); Aspartate Aminotransferase 36 U/L (15-37); BUN/Creatinine Ratio 15.9; Bilirubin, Total < 0.1 mg/dL (0.2-1.0); GFR African American 100 mL/min; GFR Non-African American 83 mL/min; Total Protein 7.1 g/dL (6.4-8.2)
[2019-04-01 06:20] VITALS: BP 111/66
[2019-04-01 06:28] LABS: Band Neutrophils % (manual) 8; Lymphocytes % (manual) 3 (10.0-50.0)
--- NOTE | 2019-04-01 07:15 | NUR ---
Opening Shift Note Report received and Assumed care of patient, awake and alert. No S/S of distress/SOB or pain. Safety measures in place bed in lowest position, side rails x2 up, and call light within reach. Instructed on POC and to call for assist PRN, will continue to monitor for changes Q1hr and PRN.
[2019-04-01] MEDS ORDERED: cefTRIAXone 1GM/50ML D5W 50 ML IV SCH (09:00)
[2019-04-01 09:06] VITALS: BP 96/62
[2019-04-01] MEDS ORDERED: SULFAMETHOX W/TRIMETH(800/160MG) DS TAB PO SCH (10:00)
[2019-04-01] MEDS ORDERED: amLODIPine BESYLATE 5 MG TAB PO SCH (10:00)
--- NOTE | 2019-04-01 10:30 | NUR ---
REQUESTED PATIENT TO ASK FAMILY TO BRING NORVIR AND TRUVADA MEDICATION STATED NOT TAKING THOSE ANYMORE,INSTEAD SHE WAS TAKING BIKTARVY WHICH SHE CAN OT REMEMBER DOSAGE AND FREQUENCY AND THAT SHE RUNS OUT OF PRESCRIPTION.
[2019-04-01] MEDS: FAMOTIDINE 20 MG TAB PO SCH (10:33)
--- NOTE | 2019-04-01 11:00 | NUR ---
WOUND CARE NOTE: WOUND CONSULT ORDERED FOR PATIENT WITH WOUND TO SACRUM. PATIENT RECENTLY ADMITTED TO [facility] WITH DIAGNOSIS OF ACUTE ABDOMINAL PAIN. CURRENT ANABELA SCORE IS 20. PATIENT IS AMBULATORY, CAN SELF TURN/REPOSITION SELF. WOUND PHOTO TAKEN UPON ADMIT, BY BEDSIDE NURSE FOR REFERENCE. PATIENT HAS HISTORY WITH PRESSURE INJURY PER PATIENT STATEMENT. CURRENTLY, PATIENT HAS MILD MASD WITH SMALL 0.5 X 0.5 CM PARTIAL THICKNESS PRESSURE INJURY NOTED TO INTRAGLUTEAL FOLD OF SACRUM. APPLIED ZGUARD/OPTIFOAM GENTLE DRESSING. PATIENT EDUCATED IN WOUND CARE AT THIS TIME. PATIENT VERBALIZED UNDERSTANDING. RECOMMEND IF PATIENT DOES NOT DISCHARGE HOME: MOISTURE MANAGEMENT WITH FREQUENT PERICARE, KEEPING SKIN CLEAN AND DRY, BID/PRN APPLICATION WITH ZGUARD, OPTIGFOAM GENTLE DRESSING, SKIN/WOUND CARE PLAN, DIETARY CONSULT FOR WOUND, CONTINUED MONITORING BY WOUND CARE TEAM. Addendum: 04/01/19 at 1735 by Frida Villeda RN Amended: Links added.
[2019-04-01 11:10] LABS: Alcohol, Urine < 3.0 mg/dL (0-5); Amphetamine Screen, Urine NEGATIVE (NEGATIVE); Barbiturate Scree,Urine NEGATIVE (NEGATIVE); Benzodiazephine Screen, Urine NEGATIVE (NEGATIVE); Cannabinoid Screen, Urine NEGATIVE (NEGATIVE); Cocaine Screen, Urine NEGATIVE (NEGATIVE); Opiate Scree,Urine NEGATIVE (NEGATIVE); Phencyclidine Screen, Urine NEGATIVE (NEGATIVE)
[2019-04-01 11:15] LABS: Urine Bacteria NONE SEEN /hpf (None Seen); Urine Blood Negative /uL (Negative); Urine Hyaline Cast FEW /lpf (0 - 2); Urine Specific Gravity 1.011 (1.001-1.035); Urine WBC 4 /hpf (0 - 5)
--- NOTE | 2019-04-01 11:15 | NUR ---
SPOKE TO [facility] PATHOLOGY DEPT. RE EGD PATHOLOGY/BIOPSY REPORT FROM 02/23/19
--- NOTE | 2019-04-01 11:25 | NUR ---
DR. PAINTER AT BEDSIDE,EXPLAIN DISEASE PROCESS AND PLAN OF CARE,INFORMED OF UNAVAILABILITY OF HER HIV MEDICATIONS.
--- NOTE | 2019-04-01 12:15 | NUR ---
INFORMED PER PATIENT SHE WILL BE PICKUP BY HER DAD AT 7 PM IF DISCHARGE,INOCENCIO LOFTON INFORMED
--- NOTE | 2019-04-01 12:20 | NUR ---
RECIEVED FAX REPORT OF EGD/BIOPSY REPORT,PLACED IN PATIENT CHART
[2019-04-01 13:29] VITALS: BP 104/68
[2019-04-01 14:18] VITALS: BP 104/68
[2019-04-01 17:30] VITALS: BP 100/60
--- NOTE | 2019-04-01 18:00 | NUR ---
Discharge instructions given as ordered. Encourage to follow up with PMD as instructed. All questions and concerns addressed. Patient verbalized understanding. Medication reconciliation form completed and copy given to patient. IV removed with catheter intact, pressure dressing applied.Patient requested to eat dinner first before leaving.
--- NOTE | 2019-04-01 18:26 | NUR ---
Patient taken to vehicle via wheelchair with all personal belongings, accompanied by staff and family member. No distress noted at time of departure
== END 2019-04-01 18:26 | disposition home or self-care (01) | DRG 894 ==
LOC: ER 17:56 → OVERFLOW 17:57 → WEST WING 22:50
PROVIDERS: ADMIT Nurse Practitioner; ATTEND Internal Medicine
DX: B20 Human immunodeficiency virus [HIV] disease (principal); E44.0 Moderate protein-calorie malnutrition; D70.9 Neutropenia, unspecified; R18.8 Other ascites; E04.1 Nontoxic single thyroid nodule; E87.6 Hypokalemia; F12.90 Cannabis use, unspecified, uncomplicated; F14.90 Cocaine use, unspecified, uncomplicated; I10 Essential (primary) hypertension; F17.210 Nicotine dependence, cigarettes, uncomplicated; J45.909 Unspecified asthma, uncomplicated; G47.00 Insomnia, unspecified; R59.0 Localized enlarged lymph nodes; K21.9 Gastro-esophageal reflux disease without esophagitis; Z98.51 Tubal ligation status; Z83.3 Family history of diabetes mellitus; Z82.49 Family history of ischemic heart disease and other diseases of the circulatory system; Z68.20 Body mass index [BMI] 20.0-20.9, adult; Z79.899 Other long term (current) drug therapy
CPT/HCPCS: 36415; 71046; 74176; 80053; 80307; 81001; 82150; 83690; 84702; 85007; 85025; 85027; 87040; 96365; 96375; G0378; J0696; J1447; J2405; J2543; J3490